=== PATIENT | female | born 1960 | race Caucasian/White ===

== ENCOUNTER 2023-09-27 18:43 | Emergency (ER) | payer BC ==
[~2023-09-27] VITALS: Ht 170.2 cm; Wt 107.3 kg
[2023-09-27] MEDS ORDERED: DULO-114 PO (18:51)
[2023-09-27] MEDS ORDERED: LISI-894 PO (18:51)
[2023-09-27] MEDS ORDERED: CYCL-448 PO (18:51)
[2023-09-27 20:59] LABS: BASOPHILS % (AUTO) 1.2 % (0.0-2.0); EOSINOPHILS % (AUTO) 7.5 % (1.0-6.0); HEMATOCRIT 41.9 % (36-46); LYMPHOCYTES # (AUTO) 2.1 K/uL (1.0-4.8); LYMPHOCYTES % (AUTO) 23.6 % (22.0-44.0); MEAN CORPUSCULAR HEMOGLOBIN 29.1 pg (26.0-34.0); MEAN CORPUSCULAR HGB CONC 33.5 G/dL (31.0-37.0); MEAN CORPUSCULAR VOLUME 87 fL (80-100); MONOCYTES # (AUTO) 0.8 K/uL (0.1-1.0); MONOCYTES % (AUTO) 9.4 % (2.0-9.0); NEUTROPHILS # (AUTO) 5.2 K/uL (1.8-7.7); NEUTROPHILS % (AUTO) 58.3 % (40.0-70.0); PLATELET COUNT (AUTO) 286 K/uL (150-450); RED BLOOD CELL COUNT(AUTO) 4.82 MIL/uL (4.00-5.20); RED CELL DISTRIBUTION WIDTH 12.8 % (11.5-14.5); WHITE BLOOD COUNT (AUTO) 8.9 K/uL (4.5-11.0)
[2023-09-27 21:07] LABS: ANION GAP 13 mmol/L (8-16); CALCIUM, TOTAL 8.8 mg/dL (8.8-10.5); CARBON DIOXIDE 26 mmol/L (22-29); CHLORIDE 103 mmol/L (98-107); CREATININE 0.86 mg/dL (0.60-1.30); GLOMERULAR FILTR. RATE CALC > 60 mL/min (>60); GLUCOSE,RANDOM 92 mg/dL (70-110); POTASSIUM 3.7 mmol/L (3.5-5.1); SODIUM SERUM 142 mmol/L (136-145); UREA NITROGEN, BLOOD 14 mg/dL (7-18)
[2023-09-27 21:08] LABS: D-DIMER 0.56 mg/L FEU (0.00-0.50)
[2023-09-27 21:13] LABS: ALANINE AMINOTRANSFERASE 39 U/L (12-78); ALBUMIN 3.4 g/dL (3.4-5.0); ALKALINE PHOSPHATASE 88 U/L (46-116); ASPARTATE AMINOTRANSFERASE 23 U/L (15-37); B-TYPE NATRIURETIC PEPTIDE < 5 pg/mL (0-100); BILIRUBIN,TOTAL 0.2 mg/dL (0.1-1.0); TOTAL PROTEIN, SERUM 7.5 g/dL (6.4-8.2)
[2023-09-27 21:15] LABS: TROPONIN I-HIGH SENSITIVITY 5 ng/L (<51)
[2023-09-27 22:17] LABS: INR 1.1 (0.9-1.1); PROTHROMBIN TIME 11.1 SEC (9.4-11.6)
[2023-09-27 22:25] LABS: APPEARANCE,URINE CLEAR (CLEAR); BILIRUBIN,URINE NEGATIVE (NEGATIVE); COLOR,URINE LIGHT YELLOW (YELLOW); GLUCOSE, URINE (UA) NEGATIVE (NEGATIVE); KETONES,URINE NEGATIVE (NEGATIVE); LEUKOCYTE ESTERASE ,URINE NEGATIVE (NEGATIVE); NITRATE,URINE NEGATIVE (NEGATIVE); OCCULT BLOOD,URINE NEGATIVE (NEGATIVE); PH,URINE 6.5 (5.0-8.0); PROTEIN,URINE NEGATIVE (NEGATIVE); SPECIFIC GRAVITIY, URINE 1.011 (1.003-1.030); UROBILINOGEN,URINE <=1.0 mg/dL (<=1.0)
[2023-09-27] MEDS ORDERED: IOHEXOL 350 MG/ML 100 ML VIAL ONE (22:46)
[2023-09-27] MEDS ORDERED: SODIUM CHLORIDE 0.9% 100 ML ONE (22:46)
[2023-09-28] MEDS ORDERED: DULO-114 PO (00:43)
[2023-09-28] MEDS ORDERED: CYCL-448 PO (00:43)
[2023-09-28] MEDS ORDERED: LISI-894 PO (00:43)
[2023-09-28 00:58] VITALS: BP 149/92; PULSE 89; RESP 18; TEMP 98
== END 2023-09-28 01:00 | disposition home or self-care (01) ==
LOC: EMS 18:45
DX: I10 Essential (primary) hypertension (principal); M79.7 Fibromyalgia; R53.1 Weakness; Z86.718 Personal history of other venous thrombosis and embolism; Z96.659 Presence of unspecified artificial knee joint; Z88.8 Allergy status to other drugs, medicaments and biological substances
CPT/HCPCS: 99285; 93970; 71275; 71045; 80053; 81003; 83880; 84484; 85025; 85379; 85610; 85730; 36415; 93005; Q9967; J7050

== ENCOUNTER 2024-02-09 17:48 | Emergency (ER) | payer BC ==
[~2024-02-09] VITALS: Ht 170.2 cm; Wt 100.9 kg
[~2024-02-09 17:48] MED LIST: CYCL-448 PO; DULO-114 PO; LISI-894 PO
[2024-02-09 18:36] VITALS: TEMP 98.3
[2024-02-09 19:41] LABS: BASOPHILS % (AUTO) 0.9 % (0.0-2.0); HEMOGLOBIN 14.7 g/dL (12.0-16.0); LYMPHOCYTES # (AUTO) 2.2 K/uL (1.0-4.8); LYMPHOCYTES % (AUTO) 20.6 % (22.0-44.0); MEAN CORPUSCULAR HEMOGLOBIN 29.2 pg (26.0-34.0); MEAN CORPUSCULAR HGB CONC 34.2 G/dL (31.0-37.0); MEAN CORPUSCULAR VOLUME 86 fL (80-100); MONOCYTES # (AUTO) 0.8 K/uL (0.1-1.0); MONOCYTES % (AUTO) 7.2 % (2.0-9.0); NEUTROPHILS # (AUTO) 7.3 K/uL (1.8-7.7); NEUTROPHILS % (AUTO) 69.3 % (40.0-70.0); PLATELET COUNT (AUTO) 267 K/uL (150-450); RED BLOOD CELL COUNT(AUTO) 5.04 MIL/uL (4.00-5.20); RED CELL DISTRIBUTION WIDTH 13.3 % (11.5-14.5); WHITE BLOOD COUNT (AUTO) 10.5 K/uL (4.5-11.0)
[2024-02-09 19:50] LABS: ANION GAP 9 mmol/L (8-16); CALCIUM, TOTAL 9.4 mg/dL (8.8-10.5); CARBON DIOXIDE 28 mmol/L (22-29); CHLORIDE 99 mmol/L (98-107); CREATININE 0.79 mg/dL (0.60-1.30); GLOMERULAR FILTR. RATE CALC > 60 mL/min (>60); GLUCOSE,RANDOM 117 mg/dL (70-110); POTASSIUM 4.4 mmol/L (3.5-5.1); SODIUM SERUM 136 mmol/L (136-145); UREA NITROGEN, BLOOD 14 mg/dL (7-18)
[2024-02-09 19:59] LABS: ALANINE AMINOTRANSFERASE 45 U/L (12-78); ALBUMIN 3.8 g/dL (3.4-5.0); ALKALINE PHOSPHATASE 92 U/L (46-116); ASPARTATE AMINOTRANSFERASE 27 U/L (15-37); BILIRUBIN,TOTAL 0.4 mg/dL (0.1-1.0); TOTAL PROTEIN, SERUM 7.9 g/dL (6.4-8.2)
[2024-02-09 20:06] LABS: TROPONIN I-HIGH SENSITIVITY 4 ng/L (<51)
[2024-02-09] MEDS ORDERED: IOHEXOL 350 MG/ML 100 ML VIAL ONE (20:21)
[2024-02-09] MEDS ORDERED: SODIUM CHLORIDE 0.9% 100 ML ONE (20:21)
[2024-02-09 20:30] VITALS: BP 176/82; PULSE 74; RESP 16
[2024-02-09] MEDS: ASPIRIN 325 MG TABLET PO ONE (20:36)
[2024-02-09 22:38] LABS: TROPONIN I-HIGH SENSITIVITY 4 ng/L (<51)
== END 2024-02-10 00:47 | disposition home or self-care (01) ==
LOC: EMS 17:54
DX: R07.89 Other chest pain (principal); R55 Syncope and collapse; F41.9 Anxiety disorder, unspecified; I10 Essential (primary) hypertension; M79.7 Fibromyalgia; Z86.718 Personal history of other venous thrombosis and embolism
CPT/HCPCS: 99285; 71275; 71045; 80053; 84484; 85025; 85379; 36415; 93005; Q9967; J7050